=== PATIENT | male | born 1970 | race Caucasian/White ===

== ENCOUNTER 2021-10-12 17:53 | Emergency (ER) | payer OTHER, SELFPAY ==
--- NOTE | ~2021-10-12 | XR_ITS ---
EXAM: XR hand RT min 3V HISTORY: DEEP TISSUE CUT TO CARPALS 3-5 FROM SCRAP METALS COMPARISON: None available FINDINGS: Normal mineralization. No fracture or dislocation. No lytic or blastic lesion. Joint space s maintained. No erosion or periosteal change. Large dorsal lateral soft tissue laceration. IMPRESSION: No acute osseous finding in the right hand. No radiopaque foreign body. Reviewed, dictated and finalized at location K.
[2021-10-12 18:01] VITALS: BP 130/89; PULSE 89; RESP 17; TEMP 36.7; O2SAT 95
--- NOTE | 2021-10-12 18:17 | ED.WOUNDLAC ---
HPI - Wound/Laceration General Chief Complaint: Wound/Laceration <MERY Yee Last Filed: 10/12/21 21:03> Stated Complaint: laceration <MERY Yee Last Filed: 10/12/21 21:03> Time Seen by Provider: 10/12/21 18:04 <MERY Yee Last Filed: 10/12/21 21:03> History of Present Illness HPI narrative: Patient is a 51-year-old [id number] male who presents emergency department with a laceration sustained to the dorsal aspect of his right hand 30 minutes prior to arrival. Patient states that he was using a metal sheet fed printer and it got caught in his hand. Patient able to move his fingers and denies any numbness or tingling. Last tetanus booster 3 years ago. He has not taken any medication for his pain. <Laurel Zapata PA-C - Last Filed: 10/12/21 21:03> Related Data Allergies/Adverse Reactions: Allergies Allergy/AdvReac Type Severity Reaction Status Date / Time Penicillins Allergy Unknown Unknown Verified 01/31/18 23:25 <MERY Yee Last Filed: 10/12/21 21:03> Review of Systems Review of Systems: Gen: Denies fevers or chills Eyes: Denies eye pain or visual change ENT: Denies congestion Respiratory: Denies shortness of breath or cough CV: Denies chest pain or palpitations GI: Denies abdominal pain nausea, emesis or diarrhea denies burning, urgency, frequency or hematuria Musculoskeletal: Denies back pain or muscle pain Neuro: Denies numbness, tingling, weakness or focal weakness Skin: Reports laceration to right hand. Denies rash Except as documented, all other systems reviewed and negative <MERY Yee Last Filed: 10/12/21 21:03> All systems reviewed & are unremarkable except as noted in HPI and below <MERY Yee Last Filed: 10/12/21 21:03> [facility] Past Medical History Medical History: Medical History (Updated 10/12/21 @ 20:50 by Brock Wade MD) Laceration <Laurel Zapata PA-C - Last Filed: 10/12/21 21:03> Exam Narrative: Gen: Adult male, appears uncomfortable Eyes: EOMI, no icterus Pulm: Respirations even and unlabored, symmetric thorax expansion, no audible stridor or visible cyanosis GI: No distension, no voluntary/involuntary guarding Neuro: AOx4, moves all extremities without apparent difficulty or weakness, follows commands Skin: Patient has a 5 cm linear laceration to the dorsal aspect of his right hand proximal to his fifth digit. Deep tissue exposed with evidence of tendon laceration. MSK: 2+ radial pulse with brisk capillary refill. Sensation intact to digits. Patient has difficulty with finger extension but states he is able. Able to flex his fingers. Psych: Normal mood/affect, insight/judgement good, adequate fund of knowledge, recent/remote memory intact <Laurel Zapata PA-C - Last Filed: 10/12/21 21:03> Course [employer]NAGER/PA Physician Supervision For this patient encounter, I reviewed the WIND PLANT MANAGER or PA documentation, treatment plan, and medical decision making; and I had [id number] time with this patient. <Brock Wade MD - Last Filed: 10/12/21 20:51> Vital Signs Vital signs: Vital Signs Temperature 98.0 F 10/12/21 18:01 Pulse Rate 89 10/12/21 18:01 Respiratory Rate 17 10/12/21 18:01 Blood Pressure 130/89 10/12/21 18:01 Pulse Oximetry 95 10/12/21 18:01 Temperature 98.0 F 10/12/21 18:01 Pulse Rate 82 10/12/21 20:20 Respiratory Rate 16 10/12/21 20:20 Blood Pressure 140/87 10/12/21 20:20 Pulse Oximetry 98 10/12/21 20:20 <Laurel Zapata PA-C - Last Filed: 10/12/21 21:03> Vital Signs Temperature 98.0 F 10/12/21 18:01 Pulse Rate 89 10/12/21 18:01 Respiratory Rate 17 10/12/21 18:01 Blood Pressure 130/89 10/12/21 18:01 Pulse Oximetry 95 10/12/21 18:01 Temperature 98.0 F 10/12/21 18:01 Pulse Rate 82 10/12/21 20:20 Respiratory Rate 16 10/12
[2021-10-12] MEDS: LIDO 1%/EPINEPHRINE 1:100,000 20 ML VIAL (18:47)
[2021-10-12 19:24] VITALS: BP 123/79; PULSE 81; RESP 16; O2SAT 99
--- NOTE | 2021-10-12 19:24 | PC.NURSE ---
Assuming care of pt.
[2021-10-12] MEDS: CEPHALEXIN 250 MG CAPSULE 500 MG PO (19:44)
[2021-10-12 20:20] VITALS: BP 140/87; PULSE 82; RESP 16; O2SAT 98
--- NOTE | 2021-10-18 11:06 | PC.NURSE ---
LATE ENTRY This note is being entered to document information to the patient's record. The following information was omitted on [], by []. PT recieved 1000 ml of NS. Iv fluids stopped by anabela Merchant 10/12/21
== END 2021-10-12 21:01 | disposition home or self-care (01) ==
PROVIDERS: Emergency Provider Emergency Medicine; PCP Internal Medicine
DX: S61.411A Laceration without foreign body of right hand, initial encounter (principal); W27.8XXA Contact with other nonpowered hand tool, initial encounter
CPT/HCPCS: 12002; 73130; 99283; A9270

== ENCOUNTER 2025-03-02 05:38 | Emergency (ER) | payer OTHER, SELFPAY ==
[2025-03-02] VITALS (13 sets, daily range): BP systolic 156–176; BP diastolic 91–113; PULSE 84–105; RESP 16–20; TEMP 36.3–37.1; O2SAT 95–100
--- NOTE | ~2025-03-02 | CT_ITS ---
EXAMINATION: CT facial bones wo con DATE: 03/02/2025 08:01 INDICATION: Facial swelling. Dental disease. TECHNIQUE: Computed tomography (CT) of the facial bones and maxillofacial region was performed without intravenous contrast. Coronal reconstructions were obtained. Automated exposure control and iterative reconstruction technique were employed. The dose-length product was 531.72 mGy-cm. COMPARISON: None. FINDINGS: Mucosal thickening, moderate in the bilateral maxillary and mild in the bilateral ethmoid sinuses. There are some bubbly mucus in the right maxillary sinus and mucous retention cyst in the left maxillary sinus. The left ostiomeatal unit is occluded by the mucosal thickening. There is mild left periorbital and preseptal soft tissue swelling suggestive of cellulitis. No post septal inflammatory stranding. No abscess. There is an obliquely oriented, unerupted/impacted left maxillary canine with retained decidual canine. Mastoid air cells and middle ear cavities are clear. Asymmetric mildly enlarged and likely reactive left cervical lymphadenopathy in the jugular and posterior cervical triangle chains. Mild cervical spondylosis. IMPRESSION: 1. Left preorbital subcutaneous periorbital cellulitis. No evident post septal inflammatory stranding or abscess. 2. Mild likely reactive left cervical lymphadenopathy. 3. Sinus disease. Reviewed, dictated and finalized at location A.
--- NOTE | 2025-03-02 06:26 | PC.NURSE ---
anne santana - cbc, cmp, lactic, blood cultures, ct facial bones with con
[2025-03-02 06:38] LABS: Hematocrit 45.6 % (42.0-52.0); Hemoglobin 14.6 g/dL (14.0-18.0); Immature Granulocyte Percent A 0.3 % (0-0.5); Lymphocytes Absolute Auto 0.87 K/mm3 (0.9-3.2); Mean Corpuscular HGB Conc 32.0 g/dl (32-36); Mean Corpuscular Hemoglobin 30.7 pg (26-34); Mean Corpuscular Volume 96.0 fl (80-100); Nucleated Red Blood Cells Absolute Auto 0.000 K/mm3 (0.0-0.012); Nucleated Red Blood Cells Perc 0.0 % (0.0-0.2); Platelet Count Result 185 k/mm3 (150-375); Red Blood Count 4.75 M/mm3 (4.6-6.20); White Blood Count 6.6 K/mm3 (4.5-10.0)
[2025-03-02 06:52] LABS: Alanine Aminotransferase 30 U/L (6-50); Albumin Level 3.9 g/dL (3.5-5.1); Alkaline Phosphatase 64 U/L (38-126); Anion Gap 7 mmol/L (4-12); Aspartate Amino Transferase 33 U/L (17-59); Bilirubin,Total 0.4 mg/dL (0.2-1.3); Blood Urea Nitrogen 9 mg/dL (9-20); Calcium 8.6 mg/dL (8.4-10.2); Carbon Dioxide 25 mmol/L (22-30); Chloride 103 mmol/L (98-107); Estimated CRCL calculation 90 ml/min; Estimated Glomerular Filt Rate > 60; Glucose 111 mg/dL (65-110); Potassium 4.1 mmol/L (3.4-5.0); Sodium 135 mmol/L (137-145); Total Protein 6.8 g/dL (6.3-8.2)
--- NOTE | 2025-03-02 07:18 | ED_ITS ---
HPI - General Adult General Chief complaint: Dental/Oral Stated complaint: dental pain, L eye swollen Time Seen by Provider: 03/02/25 06:59 History of Present Illness HPI narrative: 54 Year old male present to the emergency department for evaluation for multiple complaints including dental pain and a rash on the left side of his face. Patient had been having dental pain for the last few days and was started on antibiotics by his primary care physician. Patient then notice that he had a worsening rash on the left side of his face starting on Monday. Related Data Allergies Allergy/AdvReac Type Severity Reaction Status Date / Time Penicillins Allergy Unknown Unknown Verified 03/02/25 06:35 Review of Systems 2 Review of Systems: All systems reviewed & are unremarkable except as noted in HPI and below PMFSH Past Medical History Medical History (Updated 03/02/25 @ 08:06 by Nathaniel France MD) Laceration Exam 2 Narrative: APPEARANCE: Uncomfortable appearing HEAD: normocephalic, atraumatic. EYES: Scleral edema and injection NOSE: Normal no drainage EARS:TMS clear with good light reflex. THROAT: Pharynx clear, no exudate. NECK: Supple. No adenopathy, no masses. RESPIRATORY: Airway patent, respirations nonlabored. Clear to auscultation bilaterally, no rales, rhonchi, wheezing. CARDIOVASCULAR: Regular rate and rhythm without murmurs rubs or gallops. ABDOMINAL: Soft, nontender, nondistended, normal bowel sounds MUSCULOSKELETAL: Moves all extremities. Strength/ROM intact, No edema, No calf tenderness. NEURO: Alert. Cranial nerves II through XII intact. Good gait. Good coordination SKIN: Vesicular rash on left side of face that does not cross the midline does involve the for had left eye and maxillary area, areas of vesicles and areas of excoriation Course Vital Signs Vital signs: Vital Signs Temperature 97.4 F L 03/02/25 05:40 Pulse Rate 105 H 03/02/25 05:40 Respiratory Rate 20 03/02/25 05:40 Blood Pressure 166/91 H 03/02/25 05:40 Pulse Oximetry 98 03/02/25 05:40 Oxygen Delivery Room Air 03/02/25 05:40 Temperature 98.8 F 03/02/25 05:55 Pulse Rate 90 03/02/25 11:27 Respiratory Rate 16 03/02/25 11:27 Blood Pressure 164/108 H 03/02/25 11:27 Pulse Oximetry 96 03/02/25 11:27 Oxygen Delivery Room Air 03/02/25 05:55 Medical Decision Making [facility] Narrative Medical decision making narrative: 54-year-old male presents emergency department for evaluation for rash that is concerning for shingles it does involve the left eye. Blood cultures were or ordered and patient was started on acyclovir Q8 along with steroid. Tonometry shows a pressure 20 in the left eye with diffuse fluorescein uptake. eye exam is difficult due to eyelid swelling. patient does report some blurred vision in that eye but he was 20/50 for both eyes. Case was discussed with Dr Carla amanda at [facility]. Patient was accepted as an ED to ED transfer. Differential Diagnosis Differential Diagnosis: Poison yolie, shingles, cellulitis, ocular shingles Vital Signs Vital Signs: Vital Signs Temperature 97.4 F L 03/02/25 05:40 Pulse Rate 105 H 03/02/25 05:40 Respiratory Rate 20 03/02/25 05:40 Blood Pressure 166/91 H 03/02/25 05:40 Pulse Oximetry 98 03/02/25 05:40 Oxygen Delivery Room Air 03/02/25 05:40 Temperature 98.8 F 03/02/25 05:55 Pulse Rate 90 03/02/25 11:27 Respiratory Rate 16 03/02/25 11:27 Blood Pressure 164/108 H 03/02/25 11:27 Pulse Oximetry 96 03/02/25 11:27 Oxygen Delivery Room Air 03/02/25 05:55 Lab Data Lab results reviewed: Yes I reviewed the patient's lab results. 03/02/25 06:31 03/02/25 06:31 Labs: Lab Results 03/02/25 03/02/25 Range/Units 06:31 08:28 WBC 6.6 (4.5-10.0) K/mm3 RBC 4.75 (4.6-6.20) M/mm3 Hgb 14.6 (14.0-18.0) g/dL Hct 45.6 (42.0-52.0) % MCV 96.0 (80-100) fl MCH 30.7 (26-34) pg MCHC 32.0 (32-36) g/dl RDW 13.1 (11.5-14.5) % Plt Count 185 (150-375) k/mm3 MPV 10.1 (7.4-10.4) fl Immature Gran % (Auto) 0.3 (0-0.5) % Neut % (Auto) 64.3 (45.5-73.1) % Lymph % (Auto) 13.1 L (18.3-44.2) % Angelina % (Auto) 15.7 H (2.6-8.5) % Eos % (Auto) 5.7 H (0-4.4) % Baso % (Auto) 0.9 (0.2-1.2) % Lymph # (Auto) 0.87 L (0.9-3.2) K/mm3 Angelina # (Auto) 1.0 H (0.1-0.6) K/mm3 Eos # (Auto) 0.4 H (0-0.3) K/mm3 Baso # (Auto) 0.1 (0.0-0.1) K/mm3 Abs Immat Gran (auto) 0.02 (0.00-0.031) K/mm3 Absolute Neuts (auto) 4.3 (1.3-6.7) K/mm3 Absolute Nucleated RBC 0.000 (0.0-0.012) K/mm3 Nucleated RBC % 0.0 (0.0-0.2) % Sodium 135 L (137-145) mmol/L Potassium 4.1 (3.4-5.0) mmol/L Chloride 103 (98-107) mmol/L Carbon Dioxide 25 (22-30) mmol/L Anion Gap 7 (4-12) mmol/L BUN 9 (9-20) mg/dL Creatinine 0.90 (0.7-1.3) mg/dL Estim Creat Clear Calc 90 ml/min Estimated GFR > 60 (59 - ) Glucose 111 H (65-110) mg/dL Lactic Acid 1.1 (0.7-2.0) mmol/L Calcium 8.6 (8.4-10.2) mg/dL Total Bilirubin 0.4 (0.2-1.3) mg/dL AST 33 (17-59) U/L ALT 30 (6-50) U/L Alkaline Phosphatase 64 (38-126) U/L Total Protein 6.8 (6.3-8.2) g/dL Albumin 3.9 (3.5-5.1) g/dL Urine Opiates Screen Negative (Negative) Urine Methadone Screen Negative (Negative) Ur Barbiturates Screen Negative (Negative) Ur Phencyclidine Scrn Negative (Negative) Ur Amphetamine Screen Positive A (Negative) U Benzodiazepines Scrn Negative (Negative) Urine Cocaine Screen Negative (Negative) U Cannabinoids Screen Negative (Negative) Ethyl Alcohol < 10 (<10) mg/dL Imaging Data Radiologist's impression: Impressions Face CT 03/02/25 10:24 IMPRESSION: 1. Left preorbital subcutaneous periorbital cellulitis. No evident post septal inflammatory stranding or abscess. 2. Mild likely reactive left cervical lymphadenopathy. 3. Sinus disease. Discharge Plan Discharge Clinical Impression: Ocular herpes zoster Patient Disposition: Acute Care Hospital Condition: Serious Patient Language: Faroese Prescriptions: No Action ibuprofen 800 mg tablet 800 mg PO TID Qty: 14 0RF hydrocodone-acetaminophen 5-325 mg tablet 1 tablet PO Q4H Qty: 20 0RF cephalexin 500 mg capsule 500 mg PO Q6H Qty: 40 0RF cephalexin 500 mg capsule 500 mg PO Q6H Qty: 40 0RF Follow-up/Referrals: Erick,MD Hugh [Primary Care Provider] Stand Alone Forms: Work/School Release IP
[2025-03-02] MEDS: HYDROmorphone HCL INJ (*CRX) 1 MG/ML SYR 0.5 MG IV PUSH (08:21)
[2025-03-02] MEDS: ACYCLOVIR SODIUM IVPB 900 MG in DEXTROSE 5% IN WATER 250 ML 249.88 MG IVPB (08:25)
[2025-03-02 09:04] LABS: Cannabinoid Screen Urine Negative (Negative)
== END 2025-03-02 11:35 | disposition short-term general hospital (02) ==
LOC: ANHED 08:15
PROVIDERS: Emergency Medicine; Emergency Provider Emergency Medicine; PCP Internal Medicine
DX: B02.39 Other herpes zoster eye disease (principal)
CPT/HCPCS: 36415; 70486; 80053; 80307; 82077; 83605; 85025; 96374; 96375; 99285; J0133; J1171; J2919; J7060